=== PATIENT | female | born 1950 | race Caucasian/White ===

== ENCOUNTER → 2016-12-07 | Outpatient (CLI) | payer MEDICARE, OTHER ==
[~2016-12-07] MED LIST: B COMPLEX1 TA1; CALCIUM + D 6001 TAB; CALCIUM PO; CORRECTIVE LAXAT5 MG; CORRECTOL5 MG; DICLOFENAC 50MG50 MG PO; DIPHENHYDRAMINE25 M1; DIPHENHYDRAMINE25 M1 PO; FISH OIL500 M1 PO; GAS RELIEF20 MG/0.3; GAS RELIEF80 MG PO; Glucosamine500 MG PO; IRON TABLETS325 MG PO; MAGNESIUM PO; MEDROL 4MG. DOSE4 MG PO; PRAVASTATIN20 MG PO; SENNA CONCENTR8.6 MG PO; SLOW FE160 MG; STOOL SOFTENER100 MG; SUPER B COMPLEX1 CAP PO; THE MEDICINE S400 IU; VITAMIN D1000 IU PO; VITAMIN PO; [UNRECOGNIZED DRUG - OTHER] PO
--- NOTE | 2016-12-07 21:17 | RADIOLOGY REPORT PS360 ---
LUMBAR SPINE 5 VIEWS HISTORY: LOW BACK PAIN many years low back pain once again Patient Age: 66 years: Female Ordering Physician: Mihaela Vargas APRN TECHNIQUE: Five-view lumbar spine series COMPARISON :No previous specific lumbar studies radiograph studies FINDINGS L4/5 Prominent disc space narrowing at L4/5 with prominent sclerotic changes reactive endplate changes about this, markedly narrowed disc space.. Suggestion subtle focal concavity at superior left aspect of L5 superior endplate on the frontal projection most likely reflects Schmorl's node and degenerative change feature.-Prominent prominent marginal osteophytes and buttressing to the left at L4/5 also associated the narrowed disc. However if there is progressive pain at this level would encourage MRI or CT to further evaluate to exclude the other disc abnormalities or processes.. Most likely this is merely a Schmorl's node type feature Mild posterior hypertrophic spurring, ridging at this level suggested L4/5 level L5/S1 Also marked degenerative disc space narrowing at L5/S1 not quite as pronounced. The other lumbar vertebral disc spaces are fairly well-maintained and the vertebral bodies remain intact. There is calcification of the lower thoracic discs.. Generous marginal osteophytes anterior to the right at L3/4. Facet hypertrophy and arthropathy most evident L4/5 L5/S1. 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 However if pain should persist on would encourage CT or MRI to further evaluate L4/5. Marked degenerative disc space narrowing also noted but not quite as pronounced at this level. . Degenerative hypertrophic facet changes most evident lower L-spine
--- NOTE | 2016-12-07 21:20 | RADIOLOGY REPORT PS360 ---
HIP LT 2-3V W/PELVIS IF PERFOR, HIP RT 2-3V HISTORY: LOW BACK PAIN bilateral hip pain Patient Age: 66 years: Female Ordering Physician: Mihaela Vargas APRN TECHNIQUE: Left hip 2 views with AP pelvis Right hip 2 views COMPARISON :No studies prior to today ======= LEFT HIP 2 view The left hip is intact with no fracture and joint space well maintained. The femoral head and neck intact. Normal contour. ======== RIGHT HIP 2 view Right hip as well maintained and intact. Femoral head and neck appear intact with smooth normal contour of both femoral heads. ==== AP PELVIS is included and demonstrates a satisfactory appearance of both superior and inferior ramus as well as both iliac bone. There are some mild sclerotic changes at the right SI joint more so than left reflecting likely degenerative changes. Most pronounced to the prominent degenerative disc changes previously noted on the lumbar spine report here at L4/5 and L5/S1. IMPRESSION: Right and left hip intact. Joint space well maintained bilaterally with smooth femoral head . Prominent degenerative disc changes L4/5 L5/S1 again noted
== END ==
LOC: RAD 15:56
DX: M25.551 Pain in right hip (principal); M25.552 Pain in left hip; M54.5 Low back pain